=== PATIENT | female | born 1990 | race Caucasian/White ===

== ENCOUNTER 2019-02-10 01:00 | Inpatient (IN) | payer OTHER ==
[2019-02-10 02:38] LABS: BASO % 0.6 % (0-2.0); EOS % 1.1 % (0-4.5); HEMATOCRIT 35.6 % (32.4-45.2); HEMOGLOBIN 11.8 GM/dL (10.7-15.3); LYMPH % 19.8 % (8-40); MCH 31.4 pg (25.7-33.7); MCHC 33.2 g/dl (32.0-36.0); MEAN CELL VOLUME 94.6 fl (80-96); MEAN PLT VOLUME 9.4 fl (7.5-11.1); MONO % 10.4 % (3.8-10.2); NEUT % 68.1 % (42.8-82.8); PLATELET COUNT 219 K/MM3 (134-434); RBC 3.76 M/mm3 (3.60-5.2); RDW 13.9 % (11.6-15.6); WHITE BLOOD COUNT 9.7 K/mm3 (4.0-10.0)
[2019-02-10] MEDS ORDERED: ELECTROLYTE-148 SOLN 1,000 ML IV SCH (02:45)
[2019-02-10 02:50] LABS: INR 0.87 (0.83-1.09); PROTHROMBIN TIME (PATIENT) 10.2 SEC (9.7-13.0)
--- NOTE | 2019-02-10 02:54 | HP ---
Admitting History and Physical - Admission Chief Complaint: labor pains History of Present Illness: 25 y/o G2_P1 at 38.5 comes with complaints of SROM yesterday, states it was about mid day. She is a pt of [facility]. At the moment cannot get her records and will empirically treat. States no issues in the .. One prior . 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: No: Alzheimer's, CVA, Dementia, Migraine, Multiple Sclerosis, Peripheral Neuropathy, Parkinson's, Seizure, Syncope, TIA, Vertigo, Other Cardiovascular: No: AFIB, Aneurysm, Aortic Insufficiency, Aortic Stenosis, CAD, CHF, Deep Vein Thrombosis, HTN, Hyperlipdemia, ID, Mitral Insufficiency, Mitral Stenosis, Murmur, Pulmonary Hypertension, Other Pulmonary: No: Asthma, Bronchitis, Cancer, COPD, O2 Dependent, Pneumonia, Previously Intubated, Pulmonary Embolus, Pulmonary Fibrosis, Sleep Apnea, Other Gastrointestinal: No: Ascites, Cancer, Constipation, Crohn's Disease, Diverticulitis, Diverticulosis, Esophageal Varices, Gastritis, GERD, GI Bleed, Hemorrhoids, Hiatal Hernia, Inflamatory Bowel Disease, Irritable Bowel Disease, Pancreatitis, Peptic Ulcer Disease, Ulcerative Colitis, Other Hepatobiliary: No: Cirrhosis, Cholelithiasis, Cholecystitis, Choledocholithiasis , Hepatitis A, Hepatitis B, Hepatitis C, Other Renal/: No: Renal Failure, Renal Inusuff, BPH, Cancer, Hematuria, Hemodialysis , Neurogenic Bladder, Renal Calculi, UTI, Other Reproductive: No: Ectopic , Endometriosis, Fibroids, PID, Polycystic Ovary Syndrome, Postmenopausal, Other ...: Yes ...: 2 ...Para: 1 Heme/Onc: No: Anemia, B12 Deficiency, Bleeding Disorder, Cancer, Current Chemotherapy, Current Radiation Therapy, Hemochromatosis, Hypercoaguable State, Myeloproliferative Synd, Sickle Cell Disease, Sickle Cell Trait, Thrombocytopenia, Other Infectious Disease: No: AIDS, C-Diff, Herpes Zoster, HIV, MRSA, STD's, Tuberculosis, VREF, Other Psych: No: Addictions, Anxiety, Bipolar, Depression, Panic, Psychosis, Schizophrenia, Other Musculoskeletal: No: Bursitis, Chronic low back pain, Hemiparesis, Hemiplegia, Osteoarthritis, Paraplegia, Other Rheumatology: No: Fibromyalgia, Gout, Lupus, Rheumatoid Arthritis, Sarcoidosis, Vasculitis, Other ENT: No: Allergic Rhinitis, Sinusitis, Other Endocrine: No: [place]'s Disease, [place]'s Disease, Diabetes Insipidus, Diabetes Mellitus, Hyperparathyroidism, Hyperthyroidism, Hypothyroidism, Osteopenia, SIADH, Other - Past Surgical History Past Surgical History: No: None, AAA Repair, AICD, Amputation, Appendectomy, Arthrosocopy, AV Fistula/Graft, Bariatric Surgery, Breast Biopsy, Bypass, CABG, Carotid Endarterectomy, Cataract Removal, Cholecystectomy, Colectomy, Colonoscopy, Colostomy, Craniotomy, , Cystectomy, Hernia Repair, Hysterectomy, Ileal Conduit, Ileosotomy, Joint Replacement, Kidney Transplant, Laminectomy, Liver Transplant, Mastectomy, Nephrectomy, Oopherectomy, Orchiectomy, Permanent Pacemaker, Prostatectomy, Splenectomy, Stent, Thoracotomy , TURP, Tonsillectomy, Tubal Ligation, Upper Endoscopy, Valve Replacement, Vasectomy, Vein Stripping/Ligation - Advance Directives Advance Directives: No: Living Will, Health Care Proxy, DNR, Organ Donor, Tissue Donor, MOLST - Smoking History Have you smoked in the past 12 months: No - Alcohol/Substance Use Hx Alcohol Use: No - Social History History of Recent Travel: No Home Medications - Allergies Allergies/Adverse Reactions: Allergies Allergy/AdvReac Type Severity Reaction Status Date / Time No Known Allergies Allergy Verified 02/10/19 02:39 - Home Medications Home Medications: Ambulatory Orders Vit,Calc76/Iron/Folic [Pnv 29-1 Tablet] 1 tab PO DAILY 02/10/19 Review of Systems - Review of Systems Constitutional: denies: No Symptoms, Chills, Diaphoresis, Fever, Lethargy, Loss of Appetite, Malaise, Night Sweats, Unintentional Wgt. Loss, Weakness, Other Eyes: denies: No Symptoms, Blind Spots, Blurred Vision, Double Vision, Eye Pain , Floaters, Photophobia, Recent Change in Vision, Other HENT: denies: No Symptoms, Difficult Swallowing, Ear Discharge, Ear Pain, Epistaxis, Gingival Bleeding, Hearing Loss, Mouth Swelling, Nasal Congestion, Ocular Prosthesis, Throat Pain, Toothache, Ringing in Ears, Other Neck: denies: No Symptoms, Decreased ROM, Lumps, Pain on Movement, Stiffness, Swollen Glands, Tenderness, Other Cardiovascular: denies: No Symptoms, Chest Pain, Edema, Palpitations, Shortness of Breath, Other Gastrointestinal: denies: No Symptoms, Abdominal Pain, Bloating, Constipation, Diarrhea, Dysphagia, Indigestion, Melena, Nausea, Rectal Bleeding, Vomiting, Vomiting Blood, Other Genitourinary: denies: No Symptoms, Burning, Discharge, Dysuria, Flank Pain, Frequency, Hematuria, Incontinence, Lesions, Menses, Pain, Testicular Mass, Testicular Pain, Testicular Swelling, Urgency, Vaginal Bleeding, Other Musculoskeletal: denies: No Symptoms, Back Pain, Crepitus, Decreased ROM, Extremity Pain, Joint Pain, Joint Swelling, Muscle Pain, Muscle Cramps, Muscle Weakness, Other Integumentary: denies: No Symptoms, Blister, Bruising, Change in Color, Eczema, Erythema, Incision, Lesions, Lump, Pallor, Pruritis, Rash, Wound, Other Neurological: denies: No Symptoms, Change in LOC, Change in Speech, Confusion, Dizziness, Headache, Incoordination, Numbness, Parasthesia, Pre-Existing Deficit , Seizure, Syncope, Tremors, Unsteady Gait, Weakness, Other Endocrine: denies: No Symptoms, Excessive Sweating, Flushing, Increased Hunger, Increased Thirst, Intolerance to Cold, Intolerance to Heat, Unexplained Weight Gain, Unexplained Weight Loss, Other Hematology/Lymphatic: denies: No Symptoms, Easily Bruised, Excessive Bleeding, Swollen Glands, Other Physical Examination Constitutional: Yes: Well Nourished Eyes: Yes: WNL HENT: Yes: WNL Neck: Yes: WNL Cardiovascular: Yes: WNL Respiratory: Yes: WNL Gastrointestinal: Yes: WNL ...Rectal Exam: Yes: WNL Renal/: Yes: WNL Breast(s): Yes: WNL Musculoskeletal: Yes: WNL Integumentary: Yes: WNL ...Motor Strength: WNL Psychiatric: Yes: WNL (exam-4cm/-3 cat one tracing) Labs: CBC, BMP 02/10/19 02:20 Assessment/Plan as above admit labs pain meds prn
[2019-02-10 03:04] LABS: ALBUMIN 2.8 g/dl (3.4-5.0); BILIRUBIN,TOTAL 0.2 mg/dL (0.2-1); BLOOD UREA NITROGEN 7.5 mg/dL (7-18); CREATININE 0.7 mg/dL (0.55-1.3); POTASSIUM 3.8 mmol/L (3.5-5.1); TOT PROT 6.1 g/dl (6.4-8.2)
[2019-02-10] MEDS ORDERED: AMPICILLIN - 2 GM in DEXTROSE 5%-WATER 100 ML IVPB STA (04:09)
[2019-02-10] MEDS ORDERED: CITRIC ACID/SODIUM CITRATE 30 ML UNIT-DOSE CUP PO ONE (04:15)
[2019-02-10] MEDS ORDERED: DEXTROSE 5%-LACTATED RINGERS 1,000 ML IV SCH (04:15)
[2019-02-10 04:48] LABS: EPI CELLS 2.3 /HPF (0-5/HPF); HYALINE CASTS 10 /lpf (0-8); URINE APPEARANCE CLEAR; URINE BILIRUBIN NEGATIVE (NEGATIVE); URINE COLOR YELLOW; URINE GLUCOSE (UA) NEGATIVE (NEGATIVE); URINE KETONE NEGATIVE (NEGATIVE); URINE LEUK ESTERASE NEGATIVE (NEGATIVE); URINE NITRITE NEGATIVE (NEGATIVE); URINE PROTEIN NEGATIVE (NEGATIVE); URINE RBC 10 /hpf (0-4); URINE UROBILINOGEN 0.2 mg/dL (0.2-1.0); URINE WBC 1 /hpf (0-5)
[2019-02-10 05:01] LABS: COCAINE, UR NEGATIVE ng/ml (CUTOFF=300); METHADONE, UR NEGATIVE ng/ml (CUTOFF=300); OPIATES, URI NEGATIVE ng/ml (CUTOFF=300); PHENCYCLIDINE,URINE NEGATIVE ng/ml (CUTOFF=25); URINE AMPHETAMINES NEGATIVE ng/ml (CUTOFF=500); URINE BARBITURATES NEGATIVE ng/ml (CUTOFF=200); URINE BENZODIAZEPINES NEGATIVE ng/ml (CUTOFF=200)
[2019-02-10 05:10] VITALS: BMI 29.2
--- NOTE | 2019-02-10 05:28 | PN ---
Ante-Partal Exam - Subjective Subjective: doing well with ctx, baby moving Vital Signs: Vital Signs Temperature 98.2 F 02/10/19 04:00 Pulse Rate 89 02/10/19 04:00 Respiratory Rate 20 02/10/19 04:00 Blood Pressure 129/73 02/10/19 04:00 O2 Sat by Pulse Oximetry (%) Bleeding: No Headache: No Visual changes: No Right upper quadrant pain: No - Contractions Contractions: Yes Regularity: Irregular Intensity: Mild Monitor Mode: External - Exam during Labor Heart Rate: 140 Category: I Monitor Accelerations: Present Monitor Decelerations: None Exam: Vaginal Dilatation (cm): 4 Effacement (%): 90 Amniotic Membrane Status: Ruptured Nitrazine Test: Positive Amniotic Fluid: Clear Presentation: Vertex Station: -2 Remarks: head more applied for arom - Assessment/Plan Assessment/Plan: as above now arom consider pain meds
[2019-02-10] MEDS ORDERED: BUTORPHANOL TARTRATE 2 MG/ML VIAL IVPUSH PRN (05:38)
[2019-02-10] MEDS ORDERED: PROMETHAZINE HCL 25 MG/1 ML VIAL IVPUSH ONE (05:39)
[2019-02-10] MEDS ORDERED: BUTORPHANOL TARTRATE 1 MG/ML VIAL ONE ×2 (05:42)
[2019-02-10] MEDS ORDERED: AMPICILLIN SODIUM 1 GM VIAL ONE (06:03)
[2019-02-10] MEDS ORDERED: OXYTOCIN 20 UNITS in 0.9% NS 20 UNIT/1,000 ML INFUS.BAG IV ONE ×2 (07:48→11:14)
[2019-02-10] MEDS ORDERED: LIDOCAINE HCL 1% PRESERVATIVE FREE - 30ML VIAL ONE (07:48)
[2019-02-10] MEDS ORDERED: AMPICILLIN - 1 GM in DEXTROSE 5%-WATER 100 ML IVPB SCH (08:15)
--- NOTE | 2019-02-10 08:34 | PN ---
Progress Note, Labor Vaginal Exam #1 Labor Exam Date: 02/10/19 Labor Exam Time: 08:00 Heart Rate (range): 120 Dilatation: 5 Effacement (%): 100 Amniotic Membrane Status: Ruptured Presentation: Vertex/Position Station: 0 Remarks: fhr cat-1 uc 1-2-3 min pt s/p stadol Iv for labor analgesia IV ampicillin for Gbs prophylaxis due to unknown GBS status Selected Entries 02/10/19 08:00 Temperature 98 F Pulse Rate 71 Blood Pressure 122/73 Laboratory Tests 02/10/19 02/10/19 02/10/19 02:20 02:20 02:20 WBC 9.7 RBC 3.76 Hgb 11.8 Hct 35.6 Plt Count 219 PT with INR 10.20 INR 0.87 PTT (Actin FS) 26.0 Sodium Potassium Chloride Carbon Dioxide Anion Gap BUN Creatinine AST ALT Opiates Screen Methadone Screen Barbiturate Screen Phencyclidine Screen Ur Amphetamines Screen MDMA (Ecstasy) Screen Benzodiazepines Screen Cocaine Screen U Marijuana (THC) Screen RPR Titer HIV 1&2 Antibody Screen Negative HIV P24 Antigen Negative 02/10/19 02/10/19 02/10/19 02:20 02:20 04:35 WBC RBC Hgb Hct Plt Count PT with INR INR PTT (Actin FS) Sodium 141 Potassium 3.8 Chloride 109 H Carbon Dioxide 22 Anion Gap 10 BUN 7.5 Creatinine 0.7 AST 25 ALT 25 Opiates Screen Negative Methadone Screen Negative Barbiturate Screen Negative Phencyclidine Screen Negative Ur Amphetamines Screen Negative MDMA (Ecstasy) Screen Negative Benzodiazepines Screen Negative Cocaine Screen Negative U Marijuana (THC) Screen Negative RPR Titer Nonreactive HIV 1&2 Antibody Screen HIV P24 Antigen Vaginal Exam #2 Labor Exam Date: 02/10/19 Labor Exam Time: 09:58 Heart Rate (range): 120 Dilatation: 10 Effacement (%): 100 Amniotic Membrane Status: Ruptured Station: +3 Remarks: pt pushing
[2019-02-10 10:36] LABS: POC NITRAZINE POS
[2019-02-10] MEDS ORDERED: BENZOCAINE 28 GM HEMORRHOIDAL OINTMENT TP PRN (11:21)
[2019-02-10] MEDS ORDERED: ACETAMINOPHEN 325 MG TABLET (FP) PO PRN (11:21)
[2019-02-10] MEDS ORDERED: oxyCODONE HCL 5 MG TABLET PO PRN (11:21)
[2019-02-10] MEDS ORDERED: BENZOCAINE 20% 57 GM BOTTLE TP PRN (11:21)
[2019-02-10] MEDS ORDERED: WITCH HAZEL 50% (TUCKS) 40 PAD/JAR PAD TP PRN (11:21)
[2019-02-10] MEDS ORDERED: BISACODYL 10 MG SUPP.RECT RC PRN (11:21)
[2019-02-10] MEDS ORDERED: METHYLERGONOVINE MALEATE 0.2 MG/1 ML AMP IM PRN (11:21)
[2019-02-10] MEDS ORDERED: IBUPROFEN 600 MG TABLET (FP) PO PRN (11:21)
[2019-02-10] MEDS ORDERED: OXYTOCIN 20 UNITS in 0.9% NS 20 UNIT/1,000 ML INFUS.BAG IV SCH (11:30)
--- NOTE | 2019-02-10 16:26 | PN ---
Delivery - Delivery Vaginal Delivery: No Problems, Spontaneous (delivery vx ,,hermilo position , immediate oral & nasal suction was done at perineum . shoulders delievered without difficulty.placenta & membranes delievered copmletely 1 st degree laceration sutured with chr catgut #2/0 under local anesthesia , pR exam mucosa & sphincter intact) Type of Anesthesia: Local Episiotomy/Laceration: 1st degree EBL (cc): 300 Delivery, Single - Stages of Labor Date 1st Stage Initiatied: 02/10/19 Time 1st Stage Initiated: 02:00 Date 2nd Stage Initiated: 02/10/19 Time 2nd Stage Initiated: 10:58 Date of Delivery: 02/10/19 Time of Delivery: 10:00 Time Placenta Delivered: 10:07 - Condition of Infant Public Health Aide/Erp Manager Present: No Gender: Female Weight: 5 lb 13 oz Position: Left, OA Total Hours ROM (Hrs/Mins): 5 hrs. 15min - 1 Minute Total Score: 9 5 Minutes Total Score: 9 - Feeding Plan Initial Plan: Elected not to breastfeed exclusively throughout hospitalization Remarks - Remarks Remarks: 28 yrs 38.5 weeks , gbs unknown , admitted by Dr Hoffmann for srom ,in labor she received Iv stadol for labor analgesia she received 2 doses of Iv ampicillin for Gbs prophylaxis intrapartum course uneventful
[2019-02-10] MEDS: FERROUS SO4 325 MG TABLET (FP) PO SCH (18:13)
[2019-02-11 07:11] LABS: BASO % 0.5 % (0-2.0); HEMATOCRIT 31.9 % (32.4-45.2); HEMOGLOBIN 10.8 GM/dL (10.7-15.3); LYMPH % 26.1 % (8-40); MCH 32.2 pg (25.7-33.7); MEAN CELL VOLUME 94.7 fl (80-96); MEAN PLT VOLUME 8.6 fl (7.5-11.1); MONO % 6.8 % (3.8-10.2); NEUT % 64.6 % (42.8-82.8); PLATELET COUNT 179 K/MM3 (134-434); RBC 3.37 M/mm3 (3.60-5.2); RDW 14.2 % (11.6-15.6); WHITE BLOOD COUNT 9.3 K/mm3 (4.0-10.0)
[2019-02-11] MEDS: FERROUS SO4 325 MG TABLET (FP) PO SCH ×2 (08:03→18:07)
--- NOTE | 2019-02-11 08:04 | PN ---
Post Progress Note - Subjective Subjective: no complains , except fatigue Post Day: 1 Type of Delivery: Vital Signs: Vital Signs Temperature 98.4 F 02/11/19 06:00 Pulse Rate 68 02/11/19 06:00 Respiratory Rate 18 02/11/19 06:00 Blood Pressure 131/70 02/11/19 06:00 O2 Sat by Pulse Oximetry (%) Breast Exam: Yes: Soft, Other (BF ). No: Engorged Uterus: Yes: Fundus Firm, Fundus below umbilicus, Non-tender Lochia: Yes: Rubra Lochia, amount: Moderate Extremities: Yes: Calves non-tender Perineum: Yes: Laceration (1st degree, no perineal soreness) Activity: Ambulating - Labs Labs: CBC WBC 9.3 K/mm3 (4.0-10.0) 02/11/19 06:45 RBC 3.37 M/mm3 (3.60-5.2) L 02/11/19 06:45 Hgb 10.8 GM/dL (10.7-15.3) 02/11/19 06:45 Hct 31.9 % (32.4-45.2) L 02/11/19 06:45 MCV 94.7 fl (80-96) 02/11/19 06:45 MCH 32.2 pg (25.7-33.7) 02/11/19 06:45 MCHC 34.0 g/dl (32.0-36.0) 02/11/19 06:45 RDW 14.2 % (11.6-15.6) 02/11/19 06:45 Plt Count 179 K/MM3 (134-434) 02/11/19 06:45 MPV 8.6 fl (7.5-11.1) 02/11/19 06:45 Absolute Neuts (auto) 6.0 K/mm3 (1.5-8.0) 02/11/19 06:45 Neutrophils % 64.6 % (42.8-82.8) 02/11/19 06:45 Lymphocytes % 26.1 % (8-40) D 02/11/19 06:45 Monocytes % 6.8 % (3.8-10.2) 02/11/19 06:45 Eosinophils % 2.0 % (0-4.5) D 02/11/19 06:45 Basophils % 0.5 % (0-2.0) 02/11/19 06:45 Nucleated RBC % 0 % (0-0) 02/11/19 06:45 Problem List - Problems (1) (normal spontaneous vaginal delivery) Code(s): O80 - ENCOUNTER FOR FULL-TERM UNCOMPLICATED DELIVERY (2) Encounter for care and examination after delivery Code(s): Z39.2 - ENCOUNTER FOR ROUTINE FOLLOW-UP Assessment/Plan stable plan ct pp care discharge tomorrow
[2019-02-11] MEDS: PRENATAL VITAMINS W/ FOLIC ACID TABLET (FP) PO SCH (10:26)
[2019-02-11] MEDS ORDERED: SENNOSIDES/DOCUSATE COMBO (SENNA PLUS) TABLET (UD) PO PRN (22:00)
--- NOTE | 2019-02-12 10:05 | DS ---
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 no c.o soreness) Breast(s): Yes: Left (WNL), Right (pt c/o lump felt in rt breast , exam: rt side firmness between 11& 9oclock position vague feeling of mass mobile 1 cm , unable to determine if milk knot ( pt states , she felt 2 wks ago . no axillary nodes palpble . [facility]ilogy dept , does not do breast imaging unless absecess suspected. follow up in the clinic . no f/h/o breast cancer) Musculoskeletal: Yes: WNL Extremities: Yes: WNL. No: Calf Tenderness Edema: LLE: 1+, RLE: 1+ Integumentary: Yes: WNL Neurological: Yes: WNL, Alert, Oriented ...Motor Strength: WNL Psychiatric: Yes: WNL, Alert, Oriented Labs: CBC, BMP 02/11/19 06:45 02/10/19 02:20 Delivery - Delivery Vaginal Delivery: No Problems, Spontaneous (delivery vx ,,hermilo position , immediate oral & nasal suction was done at perineum . shoulders delievered without difficulty.placenta & membranes delievered copmletely 1 st degree laceration sutured with chr catgut #2/0 under local anesthesia , pR exam mucosa & sphincter intact) Type of Anesthesia: Local Episiotomy/Laceration: 1st degree EBL (cc): 300 Delivery, Single - Stages of Labor Date 1st Stage Initiatied: 02/10/19 Time 1st Stage Initiated: 02:00 Date 2nd Stage Initiated: 02/10/19 Time 2nd Stage Initiated: 10:58 Date of Delivery: 02/10/19 Time of Delivery: 10:00 Time Placenta Delivered: 10:07 - Condition of Engineering Writer/Freight Solicitor Present: No Gender: Female Weight: 5 lb 13 oz Position: Left, OA Total Hours ROM (Hrs/Mins): 5 hrs. 15min - 1 Minute Total Score: 9 5 Minutes Total Score: 9 - [place] Feeding Plan Initial Plan: Elected not to breastfeed exclusively throughout hospitalization Remarks - Remarks Remarks: 28 yrs 38.5 weeks , gbs unknown , admitted by Dr Hoffmann for srom ,in labor she received Iv stadol for labor analgesia she received 2 doses of Iv ampicillin for Gbs prophylaxis intrapartum course uneventful pp course uneventful f/u for breast in [address] David Discharge Summary Problems reviewed: Yes Reason For Visit: LABOR Current Active Problems Encounter for care and examination after delivery (Acute) (normal spontaneous vaginal delivery) (Acute) Procedures: Principal: Hospital Course: uneventful Health Concerns: anemia rt breast follow up Plan of Treatment: ct pnv & iron Goals: mother & infant well being Condition: Stable - Instructions Diet, Activity, Other Instructions: Post Instructions DIET: Continue good diet high in protein, calcium, and iron rich foods. Drink at least eight (8) glasses of water daily in addition to other fluids. ct Regular diet MEDICATIONS: Continue vitamins and iron as previously directed. Motrin and Tylenol may be taken for minor discomfort. ACTIVITY: Mild to moderate exercise may be started in two (2) weeks. Take frequent rest periods. Resume normal activity after six (6) week check up. WOUND CARE OF OPERATIVE SITE: Continue use of perineal bottle until vaginal discharge stops. Keep area clean. Shower daily. Keep abdominal wound dry. Report any drainage or redness to physician. Tub baths, tampons and douches are not permitted for [address] Breast feeding & or Bottle feeding BREAST CARE: (For those that are not ): If engorgement occurs: Wear tight fitting bra. Take Tylenol or Motrin for pain. Apply cold packs (ice in bags to each breast ) FAMILY PLANNING: There are many control alternatives to pursue and they should be discussed at your first office visit. You may resume sexual activity after your six (6) week check up. (Remember, breast feeding is not a contraceptive) NEXT PHYSICIAN APPOINTMENT: Be certain to call for a two (2) week appointment, unless otherwise directed. RTC 2 WEEKS FOR BREAST FOLLOW UP Call Clinic or got to Emergency Dept if you have any of the following: Heavy vaginal bleeding Painful urination Leg pain Unusual odor noted to vaginal bleeding High fever Red streaking noted on breast Referrals: Tamar David MD [Staff Physician] - Disposition: HOME - Home Medications Comprehensive Discharge Medication List: Ambulatory Orders Vit,Calc76/Iron/Folic [Pnv 29-1 Tablet] 1 tab PO DAILY 02/10/19 Acetaminophen [Tylenol .Regular Strength -] 650 mg PO Q3H PRN tablet 02/12/19 Ferrous Sulfate [Feosol] 325 mg PO BIDWM #60 tab 02/12/19 Ibuprofen [Motrin -] 200 mg PO Q4H PRN tablet 02/12/19 Vitamins (Sjr) - 1 tab PO DAILY tablet 02/12/19 Prescription Drug Monitoring Program (I-STOP) results: I-STOP reviewed and issues identified (rt mark follow up)
[2019-02-12] MEDS: PRENATAL VITAMINS W/ FOLIC ACID TABLET (FP) PO SCH (10:58)
[2019-02-12] MEDS: FERROUS SO4 325 MG TABLET (FP) PO SCH (10:58)
[2019-02-12 14:20] VITALS: BP 137/71; PULSE 70; TEMP 97.8
== END 2019-02-12 12:50 | disposition home or self-care (01) | DRG 560 ==
LOC: JDEL 01:00 → EDBD 01:45 → JLDR 01:45 → J3W 11:52
PROVIDERS: ADMIT Obstetrics & Gynecology; ATTEND Obstetrics & Gynecology
PROC: 10E0XZZ Delivery of Products of Conception, External Approach (ICD-10-PCS; principal; 2019-02-10)
PROC: 0HQ9XZZ Repair Perineum Skin, External Approach (ICD-10-PCS; 2019-02-10)
PROC: 0W8NXZZ Division of Female Perineum, External Approach (ICD-10-PCS; 2019-02-10)
DX: O70.0 First degree perineal laceration during delivery (principal); Z3A.38 38 weeks gestation of pregnancy; Z37.0 Single live birth
CPT/HCPCS: 36415; 59409; 80053; 80307; 81003; 83986-QW; 85025; 85610; 85730; 86593; 86762; 86850; 86900; 86901; 87340; 87389

== ENCOUNTER 2023-08-03 04:53 | Emergency (ER) | payer OTHER ==
[2023-08-03 04:57] VITALS: BP 136/86; PULSE 81; RESP 20; TEMP 97.2; BMI 27.1
[2023-08-03] MEDS ORDERED: ACETAMINOPHEN INJECTION 100 ML IVPB ONE (06:03)
[2023-08-03] MEDS: ACETAMINOPHEN 1000 MG/100 ML BAG IVPB ONE (06:14)
[2023-08-03 06:30] LABS: BASO % 0.7 % (0-2.0); EOS % 0.6 % (0-4.5); HEMATOCRIT 38.3 % (32.4-45.2); HEMOGLOBIN 12.8 GM/dL (10.7-15.3); LYMPH % 13.7 % (8-40); MCH 31.7 pg (25.7-33.7); MCHC 33.5 g/dl (32.0-36.0); MEAN CELL VOLUME 94.6 fl (80-96); MEAN PLT VOLUME 7.8 fl (7.5-11.1); MONO % 7.2 % (3.8-10.2); NEUT % 77.8 % (42.8-82.8); PLATELET COUNT 299 10^3/uL (134-434); RBC 4.05 M/mm3 (3.60-5.2); WHITE BLOOD COUNT 10.5 K/mm3 (4.0-10.0)
[2023-08-03 06:34] LABS: EPI CELLS >36 /uL (0-25.1); HYALINE CASTS 2 /uL (0-3.1); URINE APPEARANCE TURBID; URINE BACTERIA 183 /uL (0-1359); URINE BILIRUBIN NEGATIVE (NEGATIVE); URINE COLOR ORANGE; URINE GLUCOSE (UA) NEGATIVE (NEGATIVE); URINE KETONE NEGATIVE (NEGATIVE); URINE LEUK ESTERASE 1+ (NEGATIVE); URINE NITRITE NEGATIVE (NEGATIVE); URINE PROTEIN 1+ (NEGATIVE); URINE RBC 9697 /uL (0-23.9); URINE UROBILINOGEN 0.2 mg/dL (0.2-1.0); URINE WBC 92 /uL (0-25.8)
[2023-08-03 06:51] LABS: POTASSIUM 3.9 mmol/L (3.5-5.1)
[2023-08-03 06:53] LABS: ALBUMIN 3.6 g/dl (3.4-5.0); BLOOD UREA NITROGEN 10.2 mg/dL (7-18); CALCIUM 8.5 mg/dL (8.5-10.1)
[2023-08-03 06:56] LABS: CREATININE 0.7 mg/dL (0.55-1.3)
[2023-08-03 06:58] LABS: BILIRUBIN,TOTAL 0.3 mg/dL (0.2-1); TOT PROT 7.1 g/dl (6.4-8.2)
== END 2023-08-03 09:20 | disposition home or self-care (01) ==
LOC: JER 04:53
DX: R10.32 Left lower quadrant pain (principal); R11.2 Nausea with vomiting, unspecified; N20.0 Calculus of kidney
CPT/HCPCS: 36415; 74176-TC; 76830-TC; 80053; 81003; 83690; 84703; 85025; 87086; 99284-25; J0131